=== PATIENT | female | born 1985 | race Caucasian/White ===

== ENCOUNTER → 2018-04-24 | Outpatient (CLI) | payer BC | LOC: FIMAGING 13:20 | PROVIDERS: ATTEND Advanced Practice Midwife | DX: Z34.91 Encounter for supervision of normal pregnancy, unspecified, first trimester (principal); E05.00 Thyrotoxicosis with diffuse goiter without thyrotoxic crisis or storm; Z3A.12 12 weeks gestation of pregnancy ==

== ENCOUNTER → 2018-06-10 | Outpatient (CLI) | payer BC | LOC: FIMAGING 09:33 | PROVIDERS: ATTEND Advanced Practice Midwife | DX: O09.522 Supervision of elderly multigravida, second trimester (principal); E05.00 Thyrotoxicosis with diffuse goiter without thyrotoxic crisis or storm; Z3A.19 19 weeks gestation of pregnancy ==

== ENCOUNTER → 2018-08-11 | Outpatient (CLI) | payer BC | LOC: FIMAGING 12:08 ==